=== PATIENT | male | born 2000 | race Caucasian/White ===

== ENCOUNTER → 2025-02-27 18:53 | Outpatient (BNV) | payer BC, SELFPAY | PROVIDERS: Visit Provider Radiology Diagnostic Radiology | DX: M24.19 Other articular cartilage disorders, other specified site (principal); M76.52 Patellar tendinitis, left knee; M25.462 Effusion, left knee | CPT/HCPCS: 73721 ==

== ENCOUNTER 2025-02-27 18:57 | Outpatient (REF) | payer BC, SELFPAY ==
--- NOTE | ~2025-02-27 | MR_ITS ---
EXAM: MRI LOWER EXTREMITY JOINT, KNEE, left TECHNIQUE: Multiplanar multisequence MR imaging performed through the left knee without contrast. INDICATION: Left knee pain, one month, no injury PRIOR: None FINDINGS: Menisci: Lateral Meniscus: Intact Medial Meniscus: Intact ACL/PCL: ACL is intact. PCL is intact. Extensor mechanism: There is a small volume of joint fluid. The Insall-Salvati ratio measured 0.74 consistent with patella baja. There is mildly increased signal in the deep proximal fibers of patellar tendon. MCL/LCL: MCL is intact. There is trace fluid signal along the surface of superficial MCL. LCL complex appears intact. Articular cartilage: Patellofemoral Compartment: There is very shallow superficial fissuring of articular cartilage in the inferior lateral patellar facet. Patellar and trochlear cartilage is intact otherwise. Lateral Compartment: There is a deep partial thickness versus full-thickness fissure in the articular cartilage of the lateral tibial plateau with adjacent reactive marrow signal. Lateral femoral condyle cartilage is intact. Medial Compartment: Medial compartment articular cartilage is intact. Bones/Marrow: There is a small 5 mm cystic-like lesion within the subchondral marrow of the lateral femoral condyle with sclerotic margins. Soft tissues: Nonspecific feathery fluid signal is present in the deep fibers of the popliteus tendon. MR/MR knee LT wo con IMPRESSION: There is a focal deep partial to full-thickness articular cartilage defect in the central weightbearing region of the lateral tibial plateau with adjacent reactive marrow signal change. There is also minimal superficial fissuring in the articular cartilage of the inferior lateral patellar facet. Patella baja and mild patellar tendinopathy. Small amount joint fluid is present. Electronically signed by: Ronal Moscoso MD 03/02/2025 10:15 AM TINO
--- OUTSIDE RECORDS SUMMARY | 2025-02-27 20:05 | XMS_ITS | Clinical Summary ---
Author Organization [facility] Address [address] [place] [address] Care Team Providers Care Clinical Biochemist Name Role Phone Lloyd Lua MD Primary Care Provider [phone] Allergies No known active allergies Medications oxyCODONE immediate release (ROXICODONE) 5 MG immediate release tablet Take 1 Tablet (5 mg) every 8 hours as needed by mouth for Pain 20 Tablet 03/22/2022 Active Active Problems Problem Noted Date Diagnosed Date Needs pre-anesthesia assessment 03/21/2022 Anesthesia 03/21/2022 Social History Tobacco Use Types Packs/Day Years Used Date Smoking Tobacco: Never Smokeless Tobacco: Never Tobacco Cessation:Counseling Given: Not Answered Alcohol Use Standard Drinks/Week Comments Never 0 (1 standard drink = 0.6 oz pur e alcohol) Sex and Gender Information Value Date Recorded Sex Assigned at Not on file Legal Sex Male 11:44 EST Gender Identity Male 04/11/2022 9:27 EST Sexual Orientation Straight 04/11/2022 9: 27 EST Last Filed Vital Signs Vital Sign Reading Time Taken Comments Blood Pressure 119/69 10/12/2022 1532 EDT Pulse 84 10/12/2022 1532 EDT Temperature 36.8 C (98.3 F) 10/12/2022 1532 EDT Respiratory Rate 17 04/20/2022 0806 EST Oxygen Saturation 97% 03/23/2022 1900 EST Inhaled Oxygen Concentration - - Weight 99.8 kg (220 lb) 03/23/2022 1303 EST Height 190.5 cm (6' 3 ) 03/23/2022 1303 EST Body Mass Index 27.5 03/23/2022 1303 EST Plan of Treatment Health Maintenance Due Date Last Done Comments Wellness Exam 2005 Yearly Depression Screen 2014 Meningococcal B Vaccine (1 of 2 - Standard) 2018 TETANUS / TDAP SHOT 07/10/2023 07/09/2013, 03/29/2007, 05/07/2003, Additional history exists COVID-19 (SARS-CoV-2) Vaccine (2024- season) 2024 FLU VACCINE (#1) 11/24/2024 01/01/2017, 10/2012, 12/20/2009 Meningococcal Vaccine Aged Out 07/09/2013 No nano tate eligible based on patient's age to complete this topic Pneumococcal Immunization 0-49 Aged Out No longer eligible based on patient's age to complete this topic Care Teams Clinical Biochemist Relationship Specialty Start Date End Date Lloyd Lua MD [address] [place] [address] PCP - General Pediatric General 02/13/22
--- OUTSIDE RECORDS SUMMARY | 2025-02-27 20:05 | XMS_ITS | Clinical Summary ---
Author Organization [facility], [facility], and [facility] Address [address] [place] [address] Care Team Providers Care Social Scientist Name Role Phone Lloyd Lua MD Primary Care Provider [phone] Khang Rothman MD Unavailable [phone] Allergies No known active allergies Medications acetaminophen 500 MG TabletIndications :Pain Take 2 tablets (1,000 mg) by mouth Every 6 Hours As Needed for Pain. 30 tablet 4 Active gabapentin 300 MG CapsuleIndication s:Neuropathic Pain Take 1 capsule (300 mg) by mouth 3 Times a Day. 9 capsule 4 Active omeprazole 20 MG Capsule DRIndications:Gas tric Hyperacidity Take 1 capsule (20 mg) by mouth Daily 30 mins Before Breakfast. 10 capsule 4 Active ondansetron 4 MG TabletIndications :Nausea and Vomiting Take 1 tablet (4 mg) by mouth Every 8 Hours As Needed for nausea/vomit ing. 20 tablet 4 Active oxyCODONE 5 MG TabletIndications :Pain Take 1 tablet (5 mg) by mouth Every 6 Hours As Needed. Max Daily Amount: 20 mg 20 tablet 4 Active MELOXICAM 15 MG Tablet TAKE 1 TABLET BY MOUTH EVERY DAY 30 tablet 5 Active Active Problems Problem Noted Date Diagnosed Date Tear of UCL of right elbow 08/08/2023 Social History Tobacco Use Types Packs/Day Years Used Date Smoking Tobacco: Never Smokeless Tobacco: Never Tobacco Cessation:Counseling Given: Not Answered Alcohol Use Standard Drinks/Week Comments Yes 0 (1 standard drink = 0.6 oz pur e alcohol) Sex and Gender Information Value Date Recorded Sex Assigned at Not on file Legal Sex Male 4:04 PM EDT Gender Identity Not on file Sexual Orientation Not on file Last Filed Vital Signs Vital Sign Reading Time Taken Comments Blood Pressure 108/58 08/14/2023 6:15 PM EDT Pulse 87 08/14/2023 6:15 PM EDT Temperature 37 C (98.6 F) 08/14/2023 5:30 PM EDT Respiratory Rate 15 08/14/2023 6:15 PM EDT Oxygen Saturation 99% 08/14/2023 6:15 PM EDT Inhaled Oxygen Concentration - - Weight 97.5 kg (215 lb) 08/14/2023 2:03 PM EDT Height 190.5 cm (6' 3 ) 08/14/2023 2:03 PM EDT Body Mass Index 26.87 08/14/2023 2:03 PM EDT Plan of Treatment Health Maintenance Due Date Last Done Comments HIV SCREENING 2015 IMM: HPV (1 - Male 3-dose series) 2017 IMM: Meningococcal B (1 of 2 - Standard) 2018 Hepatitis C screening 02/18/2020 IMM: DTap/ Tdap/ Td (1 - Tdap) 2021 COVID-19 Vaccine (1 - 2024-2 6 season) 2024 IMM: Influenza (#1) 2024 IMM: RSV (1 - 1-dose 75+ series) 2077 Pneumococcal Vaccine: Pediat rics (0 to 5 Years) and At-Risk Patients (6 to 49 Years) Aged Out No longer eligible b ased on patient's age to complete this topic Medical Devices Implanted Type Area Manager Green Device Identifier Shelf Expiration Date Model / Serial / Lot Russell Suture Swivelock 3.5 X 13.5mm ([id number]) - Sna - [id number] Implanted:Qty: 1 on 08/14/2023 by Khang Rothman MD at [facility] Russell Right: Elbow ARTHREX [id number] 05/23/2028 [id number] / NA / [id number] Insurance BLUE CARD PROGRAM PPO - OUT OF STATE COMMERCIAL - GENERIC BLUE CARD PROGRAM PPO - OUT OF STATE COMMERCIAL - GENERIC BLUE CARD PROGRAM PPO - OUT OF STATE BLUE CARD PROGRAM PPO - OUT OF STATE Care Teams Social Scientist Relationship Specialty Start Date End Date Lloyd Lua MD PCP - General 07/03/23 Khang Rothman MD [address] [place] [address] [address] [place] [address] Surgery - Orthopedic 09/29/23
== END 2025-02-27 18:58 | disposition home or self-care (01) ==
LOC: HO.MRI 18:57
PROVIDERS: Visit Provider Student in an Organized Health Care Education/Training Program
DX: M25.562 Pain in left knee (principal)
CPT/HCPCS: 73721